=== PATIENT | male | born 1980 | race Two or more races ===

== ENCOUNTER 2018-05-07 21:33 | Emergency (ER) | payer SELFPAY ==
[~2018-05-07] VITALS: Ht 175.3 cm; Wt 104.3 kg
[2018-05-07] MEDS ORDERED: LORAZEPAM INJ 2 MG/ML VIAL ONE (21:50)
[2018-05-07] MEDS ORDERED: HALOPERIDOL LACTATE INJ 5 MG/ML VIAL ONE (21:50)
[2018-05-07] MEDS: HALOPERIDOL LACTATE INJ 5 MG/ML VIAL IM ONE (21:52)
[2018-05-07] MEDS: LORAZEPAM INJ 2 MG/ML VIAL IM ONE (21:52)
[2018-05-07 22:44] LABS: BASOPHILS # (AUTO) 0.1 /CMM (0.0-0.2); BASOPHILS % (AUTO) 0.7 % (0.0-2.0); EOSINOPHILS % (AUTO) 1.1 % (0.0-6.0); HEMATOCRIT 37 % (39-51); HEMOGLOBIN 12.1 g/dL (13.5-17.5); LYMPHOCYTES % (AUTO) 12.7 % (20.0-44.0); MEAN CORPUSCULAR HEMOGLOBIN 29 PG (26.0-33.0); MEAN CORPUSCULAR HGB CONC 33 g/dl (31.0-36.0); MEAN CORPUSCULAR VOLUME 89 fL (80-96); MONOCYTES # (AUTO) 0.7 /CMM (0.1-1.30); MONOCYTES % (AUTO) 4.5 % (2.0-12.0); NEUTROPHILS # (AUTO) 12.7 /CMM (1.8-8.9); PLATELET COUNT (AUTO) 236 /CMM (150-450); RDW COEFFICIENT OF VARIATION 14.5 (11.5-15.0); RED BLOOD CELL COUNT(AUTO) 4.13 MIL/uL (4.5-6.0); WHITE BLOOD COUNT (AUTO) 15.7 K/uL (4.3-11.0)
[2018-05-07 23:07] VITALS: BP 126/62
[2018-05-07 23:20] LABS: CALCIUM, SERUM 8.2 mg/dL (8.5-10.1); POTASSIUM 3.5 mmol/L (3.5-5.1)
[2018-05-07 23:31] LABS: ALBUMIN 3.5 g/dL (3.4-5.0); BILIRUBIN,TOTAL 0.2 mg/dL (0.2-1.0); TOTAL PROTEIN, SERUM 7.2 g/dL (6.4-8.2)
== END 2018-05-08 05:26 | disposition home or self-care (01) ==
LOC: ER 21:36
DX: F15.159 Other stimulant abuse with stimulant-induced psychotic disorder, unspecified (principal); F14.10 Cocaine abuse, uncomplicated; F20.9 Schizophrenia, unspecified
CPT/HCPCS: 36415; 80048; 80076; 80305; 80329; 85025; 96372 ×2; 99284; A4606; G0480 ×2; J1630; J2060; Z7610